=== PATIENT | female | born 1975 | race Caucasian/White ===

== ENCOUNTER 2024-12-23 05:52 | Day surgery (SDC) | payer OTHER ==
[2024-12-16 09:34] VITALS: BMI 32.2
[2024-12-23] MEDS ORDERED: Lidocaine 1% PF 5 ML VIAL ONE (06:42)
== END 2024-12-23 09:00 | disposition home or self-care (01) ==
LOC: CSHSDC 05:52
PROVIDERS: ATTEND Surgery
PROC: 0DJD8ZZ Inspection of Lower Intestinal Tract, Via Natural or Artificial Opening Endoscopic (ICD-10-PCS; principal; 2024-12-23)
DX: Z12.11 Encounter for screening for malignant neoplasm of colon (principal); I10 Essential (primary) hypertension; Z90.49 Acquired absence of other specified parts of digestive tract; Z87.891 Personal history of nicotine dependence; Z90.710 Acquired absence of both cervix and uterus
CPT/HCPCS: J2704